=== PATIENT | female | born 1945 ===

== ENCOUNTER 2024-10-27 14:10 | Inpatient (IN) | payer OTHER, BC ==
[2024-10-27 14:58] LABS: VENOUS O2 SATURATION 59.4 % (70-80)
[2024-10-27 14:59] LABS: VENOUS PH 7.155 (7.310-7.410)
[2024-10-27 15:00] LABS: HEMATOCRIT 27.6 % (34.1-44.9); MEAN CELL VOLUME 102.6 fl (79.4-94.8); MEAN PLT VOLUME 11.3 fl (9.4-12.3); PLATELET COUNT 251 x10^3/uL (182-369); RDW 17.4 % (12.4-16.6); VENOUS PCO2 103.2 mmHg (38-52)
[2024-10-27 15:08] LABS: INR 2.63 (0.83-1.09); PROTHROMBIN TIME (PATIENT) 28.9 SEC (9.7-13.0)
[2024-10-27] MEDS: SODIUM CHLORIDE 0.9% 500 ML INFUS.BAG IV ONE (15:16)
[2024-10-27 15:20] VITALS: BMI 22.6
[2024-10-27 15:31] LABS: CHLORIDE 87 mmol/L (98-107); POTASSIUM 3.9 mmol/L (3.5-5.1); SODIUM 133 mmol/L (136-145)
[2024-10-27 15:34] LABS: ALBUMIN 2.3 g/dl (3.4-5.0); ANION GAP 12 mmol/L (4-13); CALCIUM 8.9 mg/dL (8.5-10.1); CO2 34 mmol/L (21-32); GLUCOSE,RANDOM 222 mg/dL (74-106); MAGNESIUM 2.5 mg/dL (1.8-2.4)
[2024-10-27 15:37] LABS: CREATININE 0.8 mg/dL (0.55-1.3); SGOT/AST 88 U/L (15-37); SGPT/ALT 59 U/L (13-61)
[2024-10-27 15:39] LABS: TOT PROT 7.4 g/dl (6.4-8.2)
[2024-10-27 15:40] LABS: ALK PHOS 179 U/L (45-117)
[2024-10-27 15:58] LABS: LACTIC ACID 5.7 mmol/L (0.4-2.0)
[2024-10-27 17:44] LABS: LACTIC ACID 3.1 mmol/L (0.4-2.0)
[2024-10-27 17:49] LABS: VENOUS BASE EXCESS 5.5 mmol/L (-2-2); VENOUS O2 SATURATION 52.5 % (70-80); VENOUS PCO2 65.1 mmHg (38-52); VENOUS PH 7.318 (7.310-7.410)
[2024-10-27 18:09] LABS: POTASSIUM 3.3 mmol/L (3.5-5.1)
[2024-10-27 18:11] LABS: BLOOD UREA NITROGEN 36.6 mg/dL (7-18); CALCIUM 7.8 mg/dL (8.5-10.1)
[2024-10-27 18:15] LABS: CREATININE 0.6 mg/dL (0.55-1.3)
[2024-10-27 18:16] LABS: BILIRUBIN,TOTAL 1.3 mg/dL (0.2-1); TOT PROT 6.3 g/dl (6.4-8.2)
[2024-10-27 18:49] LABS: BASOPHILS # 0.04 x10^3/uL (0.01-0.08); EOSINOPHIL % 0.1 % (0.7-5.8); EOSINOPHILS # 0.01 x10^3/uL (0.04-0.36); HEMATOCRIT 21.9 % (34.1-44.9); HEMOGLOBIN 6.5 g/dL (11.2-15.7); MCHC 29.7 g/dl (32.2-35.5); MEAN CELL VOLUME 100.9 fl (79.4-94.8); MEAN PLT VOLUME 10.8 fl (9.4-12.3); MONOCYTE # 1.37 x10^3/uL (0.24-0.86); MONOCYTE % 8.5 % (4.7-12.5); PLATELET COUNT 207 x10^3/uL (182-369); RDW 17.4 % (12.4-16.6)
[2024-10-27] MEDS: SODIUM CHLORIDE 1,000 ML IV STA ×2 (19:06)
[2024-10-27 20:06] LABS: LACTIC ACID 3.3 mmol/L (0.4-2.0)
[2024-10-27 23:37] VITALS: RESP 18
[2024-10-28] MEDS ORDERED: SODIUM CHLORIDE 500 ML IV ONE (01:25)
[2024-10-28] MEDS: MORPHINE SULFATE/0.9% NACL/PF 100 MG/100 ML BAG IVPB SCH (02:15)
[2024-10-28 06:06] VITALS: PULSE 82
[2024-10-28 15:08] VITALS: BP 102/50; TEMP 98.2
== END 2024-10-28 17:23 | DRG 297 ==
LOC: JER 14:10 → JERBED 20:35 → J5S 23:23
PROVIDERS: ADMIT Family Medicine; ATTEND Internal Medicine
PROC: 5A1935Z Respiratory Ventilation, Less than 24 Consecutive Hours (ICD-10-PCS; principal; 2024-10-27)
DX: I46.9 Cardiac arrest, cause unspecified (principal); I69.351 Hemiplegia and hemiparesis following cerebral infarction affecting right dominant side; E78.5 Hyperlipidemia, unspecified; I25.10 Atherosclerotic heart disease of native coronary artery without angina pectoris; I48.92 Unspecified atrial flutter; I08.1 Rheumatic disorders of both mitral and tricuspid valves; I69.391 Dysphagia following cerebral infarction; R13.19 Other dysphagia; I11.0 Hypertensive heart disease with heart failure; I50.9 Heart failure, unspecified; I48.91 Unspecified atrial fibrillation; Z66 Do not resuscitate; Z93.0 Tracheostomy status
CPT/HCPCS: 36415; 71045-TC-FY; 80053; 82550; 82803; 82962; 83605; 83735; 84484; 85025; 85027; 85610; 85730; 86850; 86900; 86901; 87040; 93005; 93010; 94002; 99291